=== PATIENT | female | born 1950 | race African-American/Black ===

== ENCOUNTER 2019-10-20 18:42 | Inpatient (IN) ==
[2019-10-20] MEDS ORDERED: ZALEPLON 5 MG CAPSULE PO PRN (21:00)
[2019-10-20] MEDS ORDERED: ACETAMINOPHEN 325 MG TABLET PO PRN (21:00)
[2019-10-20] MEDS ORDERED: ONDANSETRON 4 MG/2 ML VIAL IV PRN (21:00)
[2019-10-20] MEDS ORDERED: GLUCAGON 1 MG VIAL IM PRN (21:07)
[2019-10-20] MEDS ORDERED: DEXTROSE 50% 25 GM/50 ML SYRINGE IV PRN (21:07)
[2019-10-20] MEDS ORDERED: ENOXAPARIN 40 MG/0.4 ML SYRINGE SUBCUT SCH (22:00)
[2019-10-20] MEDS: INSULIN REGULAR 100 UNIT/ML SUBCUT SCH (22:53)
[2019-10-21 06:34] LABS: Basophils # 0.1 10*3/uL (0.0-0.2); Eosinophils # 0.2 10*3/uL (0.0-0.87); Hematocrit 33.4 VOL% (35.7-47.0); Hemoglobin 11.1 GM/DL (12.0-16.0); Immature Granulocytes % 0.4 %; Immature Granulocytes Absolute 0.02 #; Lymphocytes # 2.2 10*3/uL (1.4-4.0); Lymphocytes % 43.1 % (21.3-54.2); Mean Corpuscular HGB Conc 33.2 GM/DL (32-36); Mean Corpuscular Volume 89.8 FL (87-102); Mean Platelet Volume 12.2 FL (9.6-12.0); Monocytes % 7.9 % (1.7-12.7); Neutrophils % 43.6 % (38.7-73.9); Platelet Count 225 T/CUMM (130-400); Red Blood Count 3.72 MC/CUMM (3.8-5.5); Red Cell Distribution Width 13.2 % (9.3-17.3); White Blood Count 5.2 T/CUMM (4-12)
[2019-10-21 06:51] LABS: Albumin 3.1 G/DL (3.4-5.0); Bilirubin,Total 0.4 MG/DL (0.2-1.0); Calcium 8.8 MG/DL (8.5-10.1); Osmolality,Calculated 275.5 MOS/KG (273-304); Total Protein 6.7 G/DL (6.4-8.3)
[2019-10-21] MEDS: INSULIN REGULAR 100 UNIT/ML SUBCUT SCH ×4 (08:07→20:29)
[2019-10-21 08:33] LABS: Risk Ratio 3.77; VLDL CHOLESTEROL 14.6 MG/DL
[2019-10-21] MEDS: POTASSIUM CHLORIDE 20 MEQ TABLET PO PRN ×2 (08:57→10:46)
[2019-10-21] MEDS: EZETIMIBE 10 MG TABLET PO SCH (08:57)
[2019-10-21] MEDS: OMEGA 3 ACID ETHYL ESTERS 1 GM CAPSULE PO SCH (08:57)
[2019-10-21] MEDS: hydroCHLOROthiazide 25 MG TABLET PO SCH (08:57)
[2019-10-21] MEDS: amLODIPine 5 MG TABLET PO SCH (08:57)
[2019-10-21] MEDS: PANTOPRAZOLE 40 MG TABLET PO SCH (08:57)
[2019-10-21] MEDS ORDERED: VANCOMYCIN INJ 500 MG in SODIUM CHLORIDE 0.9% 100 ML IV ONE (09:27)
[2019-10-21] MEDS ORDERED: VANCOMYCIN 500 MG VIAL IRRIG ONE (09:27)
[2019-10-21] MEDS ORDERED: diphenhydrAMINE CAP 25 MG CAPSULE PO ONE (09:27)
[2019-10-21] MEDS ORDERED: DIAZEPAM 5 MG TABLET PO ONE (09:27)
[2019-10-21] MEDS ORDERED: VANCOMYCIN 500 MG VIAL ONE (11:10)
[2019-10-21] MEDS ORDERED: LIDOCAINE 1% 20 ML VIAL ONE (11:10)
[2019-10-21] MEDS ORDERED: MIDAZOLAM 2 MG/2 ML VIAL ONE (11:13)
[2019-10-21] MEDS ORDERED: fentaNYL 100 MCG/2 ML VIAL ONE (11:13)
[2019-10-21] MEDS ORDERED: TISSUE ADHESIVE 1 EACH APPLICATOR TOP ONE (11:23)
[2019-10-21] MEDS ORDERED: ALUMINUM/MAGNES/SIMETH MAX STR 30 ML UDCUP PO PRN (12:59)
[2019-10-22 04:51] LABS: Basophils % 0.8 % (0.0-0.8); Eosinophils # 0.2 10*3/uL (0.0-0.87); Eosinophils % 3.7 % (0.00-10.9); Hematocrit 35.7 VOL% (35.7-47.0); Hemoglobin 11.6 GM/DL (12.0-16.0); Immature Granulocytes % 0.4 %; Immature Granulocytes Absolute 0.02 #; Lymphocytes # 1.5 10*3/uL (1.4-4.0); Lymphocytes % 30.1 % (21.3-54.2); Mean Corpuscular HGB Conc 32.5 GM/DL (32-36); Mean Corpuscular Volume 90.4 FL (87-102); Mean Platelet Volume 11.3 FL (9.6-12.0); Monocytes % 7.3 % (1.7-12.7); Neutrophils % 57.7 % (38.7-73.9); Platelet Count 202 T/CUMM (130-400); Red Blood Count 3.95 MC/CUMM (3.8-5.5); Red Cell Distribution Width 13.2 % (9.3-17.3); White Blood Count 4.9 T/CUMM (4-12)
[2019-10-22 05:14] LABS: Calcium 8.9 MG/DL (8.5-10.1); Osmolality,Calculated 273.8 MOS/KG (273-304)
[2019-10-22] MEDS: PANTOPRAZOLE 40 MG TABLET PO SCH (08:30)
[2019-10-22] MEDS: OMEGA 3 ACID ETHYL ESTERS 1 GM CAPSULE PO SCH (08:30)
[2019-10-22] MEDS: amLODIPine 5 MG TABLET PO SCH (08:30)
[2019-10-22] MEDS: hydroCHLOROthiazide 25 MG TABLET PO SCH (08:30)
[2019-10-22] MEDS: EZETIMIBE 10 MG TABLET PO SCH (08:30)
[2019-10-22] MEDS: INSULIN REGULAR 100 UNIT/ML SUBCUT SCH ×2 (08:30→12:04)
[2019-10-22 12:32] VITALS: BP 114/71
== END 2019-10-22 13:22 | disposition home or self-care (01) | DRG 244 ==
LOC: SUATTDRO 20:28 → N.TELEN 20:28
PROVIDERS: ADMIT Internal Medicine; ATTEND Internal Medicine